=== PATIENT | female | born 1995 | race Caucasian/White ===

== ENCOUNTER 2018-08-17 18:43 | Emergency (ER) | payer BC, OTHER, SELFPAY ==
--- NOTE | 2018-08-17 20:37 | EDPHYS ---
Physician Documentation [facility] Name: Eloina Arnett Age: 22 yrs Sex: Female : 1995 Arrival Date: 08/17/2018 Time: 18:48 Bed 8 Private MD: ED Physician Ian Burton HPI: 08/17 19:25 This 22 yrs old Female presents to ER via Ambulatory with complaints of R Arm rn Pain. 19:25 The patient or guardian complains of injury, pain. The complaints affect the right rn elbow. Onset: The symptoms/episode began/occurred yesterday. Modifying factors: The symptoms are alleviated by remaining still, the symptoms are aggravated by movement, lifting weight, bending arm. Severity of symptoms: At their worst the symptoms were moderate, in the emergency department the symptoms are unchanged. The patient has not experienced similar symptoms in the past. Fell directly on elbow yesterday while ice skating, thought was bruised but worse pain today and hard to move it. No other injury, is right handed. No numbness/tingling. . 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 - Social history:: Smoking status: Patient/guardian denies using tobacco. - Ebola Screening: : Patient denies travel to an Ebola-affected area in the 21 days before illness onset. - Family history:: not pertinent. - Hospitalizations: : No recent hospitalization is reported. ROS: 19:25 Constitutional: Negative for fever, chills, and weight loss, Neck: Negative for injury, rn pain, and swelling, MS/Extremity: + right arm pain Skin: Negative for injury, rash, and discoloration, Neuro: Negative for headache, weakness, numbness, tingling, and seizure. Exam: 19:25 Constitutional: This is a well developed, well nourished patient who is awake, alert, rn and in no acute distress. Neck: No neck swelling or tenderness Chest/axilla: No collarbone tenderness MS/ Extremity: Pulses equal, no cyanosis. Neurovascular intact. + tenderness right elbow and proximal forearm, mild swelling, no ecchymosis Neuro: Awake and alert, GCS 15, oriented to person, place, time, and situation. Cranial nerves II-XII grossly intact. Motor strength 5/5 in all extremities. Sensory grossly intact. Cerebellar exam normal. Vital Signs: 19:12 BP 154 / 84; Pulse 73; Resp 18; Temp 97.9; Pulse Ox 100% on R/A; Weight 58.97 kg (R); aj1 Height 5 ft. 2 in. (157.48 cm) (R); Pain 9/10; 19:12 Body Mass Index 23.78 (58.97 kg, 157.48 cm) aj1 MDM: 19:20 Patient medically screened. rn 20:34 Differential diagnosis: closed fracture, contusion. Data reviewed: vital signs, nurses rn notes, radiologic studies, plain films, and as a result, I will discharge patient. Counseling: I had a detailed discussion with the patient and/or guardian regarding: the historical points, exam findings, and any diagnostic results supporting the discharge/admit diagnosis, radiology results, the need for outpatient follow up, to return to the emergency department if symptoms worsen or persist or if there are any questions or concerns that arise at home. Response to treatment: the patient's symptoms have mildly improved after treatment, and as a result, I will discharge patient. Special discussion: I discussed with the patient/guardian in detail that at this point there is no indication for admission to the hospital. It is understood, however, that if the symptoms persist or worsen the patient needs to return immediately for re-evaluation. ED course: Pt with likely elbow fracture, has posterior and anterior fat pads and irregular radial head, will splint and dc with instructions for ortho f/u. . 08/17 19:24 Order name: XRAY Forearm RIGHT; Complete Time: 21:24 rn 08/17 20:12 Order name: Elbow Right 2 View EDMS 08/17 20:32 Order name: Sling; Complete Time: 21:06 ak1 08/17 20:32 Order name: Splint; Complete Time: 21:06 ak1 Administered Medications: 20:43 Drug: [place] 10 mg-325 mg 1 tabs Route: PO; ak1 21:06 Follow up: Response: Pain is decreased ak1 20:43 Drug: Motrin 800 mg Route: PO; ak1 21:06 Follow up: Response: Pain is decreased ak1 Disposition: 08/17/18 20:36 Discharged to Home. Impression: Unspecified closed fracture of right elbow. - Condition is Stable. - Discharge Instructions: Cast or Splint Care, Adult, Elbow Fracture, Pediatric, How to Use a Sling. - Prescriptions for Tylenol- Codeine #3 300-30 mg Oral Tablet - take 1 tablet by ORAL route every 6 hours As needed; 20 tablet. - Medication Reconciliation Form, Thank You Letter, Antibiotic Education, Prescription Opioid Use form. - Follow up: Milton Gonzalez MD; When: 5 - 6 days; Reason: Recheck today's complaints, Re-evaluation by your physician. - Problem is new. - Symptoms have improved. Signatures: Dispatcher [employer] EDMS Kelsie Rinaldi, RN RN aj1 Ian Burton MD MD rn Krenek, Amber RN RN ak1 Corrections: (The following items were deleted from the chart) 20:12 19:24 Elbow Right 3 View+RAD.RAD.BRZ ordered. [facility] EDWI 21:11 20:36 08/17/2018 20:36 Discharged to Home. Impression: Unspecified closed fracture of ak1 right elbow. Condition is Stable. Forms are Medication Reconciliation Form, Thank You Letter, Antibiotic Education, Prescription Opioid Use. Follow up: Dr. Milton Gonzalez; When: 5 - 6 days; Reason: Recheck today's complaints, Re-evaluation by your physician. Problem is new. Symptoms have improved. rn
--- NOTE | 2018-08-17 20:37 | ER ---
Nurse's Notes [facility] Name: Eloina Arnett Age: 22 yrs Sex: Female : 1995 Arrival Date: 08/17/2018 Time: 18:48 Bed 8 Private MD: Diagnosis: Unspecified closed fracture of right elbow Presentation: 08/17 19:10 Presenting complaint: Patient states: "I was ice skating last night and fell real hard, aj1 and now I can't move my right arm" Reports pain to right forearm and elbow. Limited ROM noted to right elbow. Transition of care: patient was not received from another setting of care. Onset of symptoms was August 16, 2018. Risk Assessment: Do you want to hurt yourself or someone else? Patient reports no desire to harm self or others. Initial Sepsis Screen: Does the patient meet any 2 criteria? No. Patient's initial sepsis screen is negative. Does the patient have a suspected source of infection? No. Patient's initial sepsis screen is negative. Care prior to arrival: None. 19:10 Method Of Arrival: Ambulatory aj 19:10 Acuity: MALLORY 4 aj1 Triage Assessment: 19:12 General: Appears in no apparent distress. comfortable, Behavior is calm, cooperative, aj1 appropriate for age. Pain: Complains of pain in right arm Pain currently is 9 out of 10 on a pain scale. Neuro: Level of Consciousness is awake, alert, obeys commands. Cardiovascular: Patient's skin is warm and dry. Respiratory: Airway is patent Respiratory effort is even, unlabored, Respiratory pattern is regular, symmetrical. 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 - Social history:: Smoking status: Patient/guardian denies using tobacco. - Ebola Screening: : Patient denies travel to an Ebola-affected area in the 21 days before illness onset. - Family history:: not pertinent. - Hospitalizations: : No recent hospitalization is reported. Screenin:17 Abuse screen: Denies threats or abuse. Nutritional screening: No deficits noted. jd3 Tuberculosis screening: No symptoms or risk factors identified. Fall Risk Ambulatory Aid- None/Bed Rest/Nurse Assist (0 pts). Gait- Normal/Bed Rest/Wheelchair (0 pts) Mental Status- Oriented to own ability (0 pts). Total Zuñiga Fall Scale indicates No Risk (0-24 pts). Assessment: 19:21 General: Appears in no apparent distress. uncomfortable, Behavior is calm, cooperative, jd3 appropriate for age. Pain: Complains of pain in right arm Quality of pain is described as sharp, tender, Aggravated by repositioning. Neuro: Level of Consciousness is awake, alert, obeys commands, Oriented to person, place, time, situation. Cardiovascular: Capillary refill < 3 seconds Patient's skin is warm and dry. Respiratory: Airway is patent Respiratory effort is even, unlabored, Respiratory pattern is regular, symmetrical. GI: No signs and/or symptoms were reported involving the gastrointestinal system. : No signs and/or symptoms were reported regarding the genitourinary system. EENT: No signs and/or symptoms were reported regarding the EENT system. Derm: Skin is intact, Skin is dry, Skin is normal, Skin temperature is warm. Musculoskeletal: Circulation, motion, and sensation intact. Range of motion: limited in right elbow limited movement in right elbow due to pain. Vital Signs: 19:12 BP 154 / 84; Pulse 73; Resp 18; Temp 97.9; Pulse Ox 100% on R/A; Weight 58.97 kg (R); aj1 Height 5 ft. 2 in. (157.48 cm) (R); Pain 9/10; 19:12 Body Mass Index 23.78 (58.97 kg, 157.48 cm) aj1 ED Course: 18:48 Patient arrived in ED. ds1 19:11 Triage completed. aj1 19:12 Arm band placed on Patient placed in an exam room. aj1 19:16 Vikas Gooden, PANCHO is Primary Nurse. jd3 19:17 Patient has correct armband on for positive identification. Bed in low position. Call jd3 light in reach. Side rails up X 1. Adult w/ patient. 19:20 Ian Burton MD is Attending Physician. rn 20:21 XRAY Forearm RIGHT In Process Unspecified. EDMS 20:21 Elbow Right 2 View In Process Unspecified. EDMS 20:35 Gonzalez, Milton, MD is Referral Physician. rn 21:10 No provider procedures requiring assistance completed. Patient did not have IV access ak1 during this emergency room visit. Administered Medications: 20:43 Drug: [place] 10 mg-325 mg 1 tabs Route: PO; ak1 21:06 Follow up: Response: Pain is decreased ak1 20:43 Drug: Motrin 800 mg Route: PO; ak1 21:06 Follow up: Response: Pain is decreased ak1 Outcome: 20:36 Discharge ordered by MD. rn 21:10 Discharged to home ambulatory, with family. ak1 21:10 Condition: good 21:10 Discharge instructions given to patient, family, Instructed on discharge instructions, follow up and referral plans. no drinking with medication, no driving heavy equipment, medication usage, splint care Demonstrated understanding of instructions, follow-up care, medications, splint care. 21:11 Patient left the ED. ak1 Signatures: Dispatcher [employer] EDPR Kelsie Rinaldi RN RN [email or web address] Celina Brown ds1 Ian Burtno MD MD rn Krenek, Amber, RN RN ak1 Vikas Gooden RN RN jd3
[2018-08-17] MEDS ORDERED: IBUPROFEN 400 MG TAB ONE (20:49)
[2018-08-17] MEDS ORDERED: HYDROCODONE/APAP 10/325 TAB ONE (20:49)
--- NOTE | 2018-08-17 21:05 | RAD REPORT ---
EXAM DESCRIPTION: RAD - Forearm Right - 08/17/2018 8:23 pm CLINICAL HISTORY: PAIN History of fall, pain COMPARISON: None FINDINGS: Right elbow and right forearm- multiple projections are submitted The anterior and posterior fat pad of the elbow is elevated. Although somewhat limited by anatomic po sitioning, a subtle fracture of the radial head is suspected. No dislocation.
--- NOTE | 2018-08-21 09:26 | RAD REPORT ---
EXAM DESCRIPTION: RAD - Elbow Right 2 View - 08/17/2018 8:23 pm CLINICAL HISTORY: PAIN History of fall, pain COMPARISON: None FINDINGS: Right elbow and right forearm- multiple projections are submitted The anterior and posterior fat pad of the elbow is elevated. Although somewhat limited by anatomic po sitioning, a subtle fracture of the radial head is suspected. No dislocation.
== END 2018-08-17 21:11 | disposition home or self-care (01) ==
LOC: ER 18:43
PROC: 2W38X1Z Immobilization of Right Upper Extremity using Splint (ICD-10-PCS; principal; 2018-08-17)
DX: S42.401A Unspecified fracture of lower end of right humerus, initial encounter for closed fracture (principal); W18.30XA Fall on same level, unspecified, initial encounter; Y93.21 Activity, ice skating; Y92.9 Unspecified place or not applicable
CPT/HCPCS: 99283

== ENCOUNTER 2021-02-01 18:21 | Emergency (ER) | payer BC ==
[2021-02-01 20:05] LABS: Urine Blood Negative (Negative); Urine Glucose Negative (Negative); Urine Protein Negative (Negative); Urine pH 6.5 (5.0-7.0)
[2021-02-01 20:15] LABS: Absolute Lymphocytes (CBC) 2.7 K/uL (0.7-4.9); Basophils % 0.5 % (0-1.3); Hematocrit 38.1 % (36.0-45.0); Lymphocytes % 25.4 % (15.3-44.8); RBC Red Blood Cell Count 4.37 M/uL (3.86-4.86)
[2021-02-01 20:26] LABS: ALT/SGPT 18 U/L (12-78); AST/SGOT 15 U/L (15-37); Alkaline Phosphatase 104 U/L (45-117); BUN Blood Urea Nitrogen 9 mg/dL (7-18); Bicarbonate 27 mmol/L (21-32); Bilirubin Direct < 0.1 mg/dL (0-0.2); Bilirubin Total 0.2 mg/dL (0.2-1.0); Glucose Level 86 mg/dL (74-106); Lipase 86 U/L (73-393); Potassium 3.5 mmol/L (3.5-5.1); Protein, Total 8.3 g/dL (6.4-8.2); Sodium Level 139 mmol/L (136-145)
[2021-02-01] MEDS ORDERED: NA CHLORIDE 0.9% 1,000 ML ONE (21:18)
[2021-02-01] MEDS ORDERED: ONDANSETRON 4 MG/2 ML VIAL ONE (21:18)
[2021-02-01] MEDS ORDERED: MORPHINE 4 MG/ML SYR ONE (21:18)
--- NOTE | 2021-02-01 21:21 | RAD REPORT ---
EXAM DESCRIPTION: US - Abdomen Exam Limited - 02/01/2021 9:08 pm CLINICAL HISTORY: Abdominal pain. COMPARISON: None. FINDINGS: The gallbladder wall is not thickened. A gallstone is not seen. The biliary tree is normal caliber. IMPRESSION: Unremarkable gallbladder ultrasound.
[2021-02-01] MEDS ORDERED: LIDOCAINE VISCOUS 2% SOLN 15 ML UDC ONE (21:51)
[2021-02-01] MEDS ORDERED: MAGNESIUM HYDROXIDE 8% 30 ML ONE (21:51)
--- NOTE | 2021-02-01 21:56 | EDPHYS ---
Physician Documentation [facility] Name: Eloina Lopez Age: 25 yrs Sex: Female : 1995 Arrival Date: 02/01/2021 Time: 18:26 Bed 28 Private MD: CON Physician Augie Stephen HPI: 02/02 06:20 This 25 yrs old Female presents to ER via Ambulatory with complaints of tw4 Abdominal Pain. 06:20 The patient presents with abdominal pain. Onset: The symptoms/episode began/occurred tw4 today. The symptoms do not radiate. Associated signs and symptoms: none. The symptoms are described as dull. Modifying factors: The symptoms are alleviated by nothing, the symptoms are aggravated by alcohol, nothing. The patient has not experienced similar symptoms in the past. 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 - Social history:: Smoking status: Patient denies any tobacco usage or history of. ROS: 02/02 06:20 Constitutional: Negative for fever, chills, and weight loss, Eyes: Negative for injury, tw4 pain, redness, and discharge, Cardiovascular: Negative for chest pain, palpitations, and edema, Respiratory: Negative for shortness of breath, cough, wheezing, and pleuritic chest pain, Back: Negative for injury and pain, MS/Extremity: Negative for injury and deformity, Skin: Negative for injury, rash, and discoloration, Neuro: Negative for headache, weakness, numbness, tingling, and seizure. Abdomen/GI: Positive for abdominal pain, Negative for nausea and vomiting, nausea, vomiting, and diarrhea, diarrhea, constipation, abdominal cramps, abdominal distension, anorexia, dysphagia, black/tarry stool, rectal pain. Exam: 06:20 Constitutional: This is a well developed, well nourished patient who is awake, alert, tw4 and in no acute distress. Head/Face: Normocephalic, atraumatic. Chest/axilla: Normal chest wall appearance and motion. Nontender with no deformity. No lesions are appreciated. Cardiovascular: Regular rate and rhythm with a normal S1 and S2. No gallops, murmurs, or rubs. Normal PMI, no JVD. No pulse deficits. Respiratory: Lungs have equal breath sounds bilaterally, clear to auscultation and percussion. No rales, rhonchi or wheezes noted. No increased work of breathing, no retractions or nasal flaring. Back: No spinal tenderness. No costovertebral tenderness. Full range of motion. Skin: Warm, dry with normal turgor. Normal color with no rashes, no lesions, and no evidence of cellulitis. MS/ Extremity: Pulses equal, no cyanosis. Neurovascular intact. Full, normal range of motion. Neuro: Awake and alert, GCS 15, oriented to person, place, time, and situation. Cranial nerves II-XII grossly intact. Motor strength 5/5 in all extremities. Sensory grossly intact. Cerebellar exam normal. Normal gait. 06:20 Abdomen/GI: Inspection: abdomen appears normal, Bowel sounds: diminished, Palpation: moderate abdominal tenderness, in the epigastric area. Vital Signs: 02/01 19:02 BP 160 / 91; Pulse 122; Resp 17; Temp 97.6; Pulse Ox 100% ; Weight 75.75 kg; Height 5 bp ft. 2 in. (157.48 cm); 20:30 BP 132 / 83; Pulse 110; Resp 16 S; Pulse Ox 100% on R/A; bb 22:24 BP 127 / 88; Pulse 79; Resp 16 S; Temp 98.4(O); Pulse Ox 100% on R/A; bb 19:02 Body Mass Index 30.54 (75.75 kg, 157.48 cm) bp MDM: 20:40 Patient medically screened. tw4 02/02 06:20 Data reviewed: vital signs, nurses notes. Data interpreted: Pulse oximetry: tw4 Interpretation: normal. Counseling: I had a detailed discussion with the patient and/or guardian regarding: the historical points, exam findings, and any diagnostic results supporting the discharge/admit diagnosis. Special discussion: Based on the patient's Hx, exam, and Dx evaluation, there is no indication for emergent surgery or inpatient Tx. It is understood by the patient/guardian that if the Sx's persist or worsen they need to return immediately for re-evaluation. I discussed with the patient/guardian in detail that at this point there is no indication for admission to the hospital. It is understood, however, that if the symptoms persist or worsen the patient needs to return immediately for re-evaluation. 02/01 19:29 Order name: Basic Metabolic Panel; Complete Time: 21:29 4 02/01 21:54 Interpretation: Within normal limits. [facility] 02/01 19:29 Order name: CBC with Diff; Complete Time: 21:29 [facility] 02/01 21:53 Interpretation: Normal except: MPV 7.0; PLT 441. tw 02/01 19:29 Order name: Hepatic Function; Complete Time: 21:29 [facility] 02/01 21:54 Interpretation: Normal except: A/G 0.9; GLOB 4.3; TP 8.3. [facility] 02/01 19:29 Order name: Lipase; Complete Time: 21:29 [facility] 02/01 20:05 Order name: Urine Dipstick-Ancillary; Complete Time: 21:29 [facility] 02/01 20:12 Order name: Urine --Ancillary (enter results); Complete Time: 21:53 [facility] 02/01 19:29 Order name: IV Saline Lock; Complete Time: 20:04 [facility] 02/01 19:29 Order name: Labs collected and sent; Complete Time: 20:04 [facility] 02/01 19:32 Order name: Urine Dipstick-Ancillary (obtain specimen); Complete Time: 19:50 [facility] 02/01 20:08 Order name: US Abdomen Limited; Complete Time: 21:29 [facility] 02/01 19:32 Order name: Urine Test (obtain specimen); Complete Time: 19:50 tw4 Administered Medications: 02/01 21:05 Drug: Zofran (Ondansetron) 4 mg Route: IVP; Site: left antecubital; bb 21:44 Follow up: Response: No adverse reaction bb 21:05 Drug: NS 0.9% 1000 ml Route: IV; Rate: 1 bolus; Site: left antecubital; bb 21:44 Follow up: IV Status: Completed infusion; IV Intake: 1000ml bb 21:08 Drug: morphine 4 mg {Note: RASS 0.} Route: IVP; Site: left antecubital; bb 21:45 Follow up: Response: No adverse reaction; RASS: Alert and Calm (0) bb 21:41 Drug: GI Cocktail without - (Maalox Suspension 30 ml, Lidocaine Liquid 2 % 15 bb ml) Route: PO; 22:24 Follow up: Response: No adverse reaction bb Disposition: 02/01/21 21:55 Discharged to Home. Impression: Gastritis, unspecified, without bleeding. - Condition is Stable. - Discharge Instructions: Gastritis, Adult. - Prescriptions for Bentyl 20 mg Oral Tablet - take 1 tablet by ORAL route every 6 hours As needed; 20 tablet. Pepcid 20 mg Oral Tablet - take 1 tablet by ORAL route every 12 hours for 10 days; 20 tablet. Zofran 4 mg Oral Tablet - take 1 tablet by ORAL route every 12 hours As needed; 6 tablet. - Medication Reconciliation Form, Thank You Letter, Antibiotic Education, Prescription Opioid Use form. - Follow up: Private Physician; When: Upon discharge from the Emergency Department; Reason: Recheck today's complaints, Continuance of care, Re-evaluation by your physician. Follow up: Andrew Bell MD; When: Upon discharge from the Emergency Department; Reason: Recheck today's complaints, Continuance of care, Re-evaluation by your physician. Follow up: Terrance Nuno MD; When: Upon discharge from the Emergency Department; Reason: Recheck today's complaints, Continuance of care, Re-evaluation by your physician. Follow up: Augustin Romero MD; When: Upon discharge from the Emergency Department; Reason: Recheck today's complaints, Continuance of care, Re-evaluation by your physician. - Problem is new. - Symptoms have improved. Signatures: Dispatcher [employer] EDSC Carolyn Paz RN RN Gerson Norwood RN RN bp Augie Stephen MD MD tw4 Corrections: (The following items were deleted from the chart) 22:02 21:55 02/01/2021 21:55 Discharged to Home. Impression: Gastritis, unspecified, without tw4 bleeding. Condition is Stable. Forms are Medication Reconciliation Form, Thank You Letter, Antibiotic Education, Prescription Opioid Use. Follow up: Private Physician; When: Upon discharge from the Emergency Department; Reason: Recheck today's complaints, Continuance of care, Re-evaluation by your physician. Problem is new. Symptoms have improved. tw4 22:25 22:02 02/01/2021 21:55 Discharged to Home. Impression: Gastritis, unspecified, without bb bleeding. Condition is Stable. Discharge Instructions: Gastritis, Adult. Prescriptions for Bentyl 20 mg Oral Tablet - take 1 tablet by ORAL route every 6 hours As needed; 20 tablet, Pepcid 20 mg Oral Tablet - take 1 tablet by ORAL route every 12 hours for 10 days; 20 tablet, Zofran 4 mg Oral Tablet - take 1 tablet by ORAL route every 12 hours As needed; 6 tablet. and Forms are Medication Reconciliation Form, Thank You Letter, Antibiotic Education, Prescription Opioid Use. Follow up: Private Physician; When: Upon discharge from the Emergency Department; Reason: Recheck today's complaints, Continuance of care, Re-evaluation by your physician. Follow up: Andrew Bell; When: Upon discharge from the Emergency Department; Reason: Recheck today's complaints, Continuance of care, Re-evaluation by your physician. Follow up: Terrance Nuno; When: Upon discharge from the Emergency Department; Reason: Recheck today's complaints, Continuance of care, Re-evaluation by your physician. Follow up: Augustin Romero; When: Upon discharge from the Emergency Department; Reason: Recheck today's complaints, Continuance of care, Re-evaluation by your physician. Problem is new. Symptoms have improved. tw4
--- NOTE | 2021-02-01 21:56 | ER ---
Nurse's Notes [facility] Name: Eloina Lopez Age: 25 yrs Sex: Female : 1995 Arrival Date: 02/01/2021 Time: 18:26 Bed 28 Private MD: Diagnosis: Gastritis, unspecified, without bleeding Presentation: 02/01 19:02 Chief complaint: Patient states: EPIGASTRIC PAIN WITH N/V/D x1.5 WK. Coronavirus bp screen: At this time, the client does not indicate any symptoms associated with coronavirus-19. Ebola Screen: No symptoms or risks identified at this time. Initial Sepsis Screen: Does the patient meet any 2 criteria? HR > 90 bpm. No. Patient's initial sepsis screen is negative. Does the patient have a suspected source of infection? No. Patient's initial sepsis screen is negative. Risk Assessment: Do you want to hurt yourself or someone else? Patient reports no desire to harm self or others. Onset of symptoms is unknown. 19:02 Method Of Arrival: Ambulatory bp 19:02 Acuity: MALLORY 3 bp Triage Assessment: 19:03 General: Appears distressed, uncomfortable, Behavior is cooperative, appropriate for bp age, anxious. Pain: Complains of pain in epigastric area. EENT: No deficits noted. Neuro: No deficits noted. Cardiovascular: No deficits noted. Respiratory: No deficits noted. GI: Abdomen is non-distended. : No signs and/or symptoms were reported regarding the genitourinary system. Derm: No deficits noted. Musculoskeletal: No deficits noted. 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 - Social history:: Smoking status: Patient denies any tobacco usage or history of. Screenin:30 Abuse screen: Denies threats or abuse. Nutritional screening: No deficits noted. bb Tuberculosis screening: No symptoms or risk factors identified. Fall Risk None identified. Assessment: 19:30 General: Appears in no apparent distress. uncomfortable, Behavior is calm, cooperative. bb Pain: Complains of pain in abdomen. Neuro: Level of Consciousness is awake, alert, obeys commands, Oriented to person, place, time, situation. Cardiovascular: Heart tones S1 S2 present Capillary refill < 3 seconds Patient's skin is warm and dry. Respiratory: Respiratory effort is even, unlabored, Respiratory pattern is regular. GI: Abdomen is round Bowel sounds hyperactive in right upper quadrant, left upper quadrant, right lower quadrant and left lower quadrant Abd is soft and non tender X 4 quads. Derm: Skin is pink, warm \T\ dry. Musculoskeletal: Circulation, motion, and sensation intact. 20:41 Reassessment: Patient is alert, oriented x 3, equal unlabored respirations, skin bb warm/dry/pink. awaiting diagnostic results. 21:46 Reassessment: Patient is alert, oriented x 3, equal unlabored respirations, skin bb warm/dry/pink. pt resting quietly, IV site intact, patent no erythema or edema noted. 22:23 Reassessment: Patient is alert, oriented x 3, equal unlabored respirations, skin bb warm/dry/pink. pt verbalized understanding of and agrees to plan of care discharge instructions given pt ambulated with steady gait to exit accompanied by spouse Patient states feeling better. Vital Signs: 19:02 BP 160 / 91; Pulse 122; Resp 17; Temp 97.6; Pulse Ox 100% ; Weight 75.75 kg; Height 5 bp ft. 2 in. (157.48 cm); 20:30 BP 132 / 83; Pulse 110; Resp 16 S; Pulse Ox 100% on R/A; bb 22:24 BP 127 / 88; Pulse 79; Resp 16 S; Temp 98.4(O); Pulse Ox 100% on R/A; bb 19:02 Body Mass Index 30.54 (75.75 kg, 157.48 cm) bp ED Course: 18:26 Patient arrived in ED. ds1 19:03 Triage completed. bp 19:03 Arm band placed on. bp 19:30 Patient has correct armband on for positive identification. Bed in low position. Call bb light in reach. Pulse ox on. NIBP on. 19:32 Augie Stephen MD is Attending Physician. tw4 20:00 Initial lab(s) drawn, by me, sent to lab. Inserted saline lock: 20 gauge in left bb antecubital area, using aseptic technique. Blood collected. 20:02 Carolyn Paz, RN is Primary Nurse. bb 21:08 Abdomen Limited In Process Unspecified. EDMS 22:02 Andrew Bell MD is Referral Physician. tw4 22: Terrance Nuno MD is Referral Physician. tw4 22: Augustin Romero MD is Referral Physician. tw4 22:25 No provider procedures requiring assistance completed. IV discontinued, intact, bb bleeding controlled, No redness/swelling at site. Pressure dressing applied. Administered Medications: 21:05 Drug: Zofran (Ondansetron) 4 mg Route: IVP; Site: left antecubital; bb 21:44 Follow up: Response: No adverse reaction bb 21:05 Drug: NS 0.9% 1000 ml Route: IV; Rate: 1 bolus; Site: left antecubital; bb :44 Follow up: IV Status: Completed infusion; IV Intake: 1000ml bb 21:08 Drug: morphine 4 mg {Note: RASS 0.} Route: IVP; Site: left antecubital; bb 21:45 Follow up: Response: No adverse reaction; RASS: Alert and Calm (0) bb 21:41 Drug: GI Cocktail without - (Maalox Suspension 30 ml, Lidocaine Liquid 2 % 15 bb ml) Route: PO; 22:24 Follow up: Response: No adverse reaction bb Intake: 21:44 IV: 1000ml; Total: 1000ml. bb Outcome: 21:55 Discharge ordered by . tw4 22:25 Discharged to home ambulatory, with family. bb 22:25 Condition: stable 22:25 Discharge instructions given to patient, Instructed on discharge instructions, follow up and referral plans. medication usage, Demonstrated understanding of instructions, follow-up care, medications, Prescriptions given X 3. 22:25 Patient left the ED. bb Signatures: Dispatcher [facility] Celina Brown ds1 Carolyn Paz, PANCHO RN Gerson Norwood RN RN bp Wadley, Terrence, MD MD tw4 Corrections: (The following items were deleted from the chart) 20:40 19:30 GI: Abdomen is round bb bb
[2021-02-01 22:52] VITALS: O2SAT 100
[2021-02-01 22:54] VITALS: BP 127/88; TEMP 98.4
== END 2021-02-01 22:25 | disposition home or self-care (01) ==
LOC: ER 18:21
DX: K29.70 Gastritis, unspecified, without bleeding (principal)
CPT/HCPCS: 96361; 85025; 80048; 36415; 81025; 80076; 81003; 83690; 76705; 96375; 96374; 99284; J7030; J2405